=== PATIENT | female | born 1970 | race Caucasian/White ===

== ENCOUNTER → 2019-02-19 | Outpatient (CLI) | payer OTHER | LOC: LAB 19:20 → LAB SHORT 19:20 | PROVIDERS: Nurse Practitioner Family | DX: Z01.419 Encounter for gynecological examination (general) (routine) without abnormal findings (principal) | CPT/HCPCS: G0145 ==

== ENCOUNTER → 2019-09-25 | Outpatient (CLI) | payer OTHER ==
[2019-09-26 11:15] LABS: Candida species (DNA Probe) Negative (NEGATIVE); G. vaginalis (DNA Probe) Negative (NEGATIVE); T. vaginalis (DNA Probe) Negative (NEGATIVE)
== END ==
LOC: LAB SHORT 18:33 → LAB 18:33
PROVIDERS: Obstetrics & Gynecology
DX: N76.0 Acute vaginitis (principal)
CPT/HCPCS: 87480; 87510; 87660

== ENCOUNTER → 2022-02-05 | Outpatient (CLI) | payer OTHER ==
[2022-02-10 16:11] LABS: HPV 16 Negative (Negative); HPV 18 Negative (Negative); HPV OTHER HR TYPES Negative (Negative)
== END | disposition home or self-care (01) ==
LOC: LAB SHORT 12:25 → LAB 12:25
PROVIDERS: Physician Assistant
DX: Z01.419 Encounter for gynecological examination (general) (routine) without abnormal findings (principal)
CPT/HCPCS: 87624; G0123

== ENCOUNTER → 2022-07-14 | Outpatient (CLI) | payer OTHER ==
[2022-07-15 00:36] LABS: Adenovirus F 40/41 Not Detected (NOT DETECT); Astrovirus Not Detected (NOT DETECT); Campylobacter Sp Not Detected (NOT DETECT); Cryptosporidium Not Detected (NOT DETECT); Cyclospora Cayetanensis Not Detected (NOT DETECT); E. Coli O157 Not Detected (NOT DETECT); Entamoeba Histolytica Not Detected (NOT DETECT); Enteroaggregative E. coli-EAEC Not Detected (NOT DETECT); Enteropathogenic E. coli-EPEC Not Detected (NOT DETECT); Enterotoxigenic E. coli-ETEC Not Detected (NOT DETECT); Giardia Lamblia Not Detected (NOT DETECT); Norovirus GI/GII Detected (NOT DETECT); Plesiomonas Shigelloides Not Detected (NOT DETECT); Rotavirus A Detected (NOT DETECT); Salmonella Sp Not Detected (NOT DETECT); Shiga Toxin-prod E. coli-STEC Not Detected (NOT DETECT); Shigella/Enteroin E. coli-EIEC Not Detected (NOT DETECT); Vibrio Cholerae Not Detected (NOT DETECT); Vibrio Sp Not Detected (NOT DETECT); Yersinia Enterocolitica Not Detected (NOT DETECT)
[2022-07-15 00:37] LABS: Sapovirus Not Detected (NOT DETECT)
== END | disposition home or self-care (01) ==
LOC: LAB SHORT 16:52
PROVIDERS: Physician Assistant Surgical
DX: K52.9 Noninfective gastroenteritis and colitis, unspecified (principal)
CPT/HCPCS: 87507

== ENCOUNTER 2023-07-19 07:23 | Day surgery (SDC) | payer OTHER ==
[~2023-07-19] VITALS: Ht 167.6 cm; Wt 103.2 kg
[~2023-07-19 07:23] MED LIST: PROG100 PO; VENL37.5ER PO; VIVELLE-DOT1 EA30
[2023-07-19] MEDS ORDERED: IBUP200 PO (08:48)
[2023-07-19] MEDS ORDERED: MULVITA (08:48)
--- NOTE | 2023-07-19 08:53 | NUR ---
07/19/[address] ASSESSED PT LEFT HAND 3RD FINGER OPEN CYST- OK'S FOR PROCEDURE TO PROCEED.
--- NOTE | 2023-07-19 09:27 | NUR ---
07/19/23 0927 Lizzy Fabian PT HAS PILLOW UNDER KNEES, RIGHT ARM IS SECURED ON ARMBOARD WITH SAFETY STRAP, AND LEFT ARM ON A DOUBLE ARMBOARD
--- NOTE | 2023-07-19 10:43 | NUR ---
07/19/23 1043 Manuelito Mckeon PT PROVIDED ONDANSETRON 4MG IV FOR COMPLAINT OF NAUSEA, NO EMESIS
[2023-07-19 10:44] VITALS: BP 121/80
== END 2023-07-19 11:00 | disposition home or self-care (01) ==
LOC: ORSCSDS 07:23
PROVIDERS: Orthopaedic Surgery
PROC: 0LB80ZZ Excision of Left Hand Tendon, Open Approach (ICD-10-PCS; principal; 2023-07-19 08:30)
DX: M67.442 Ganglion, left hand (principal); Z79.899 Other long term (current) drug therapy
CPT/HCPCS: J0690; J2250; J2405; J2704; J2795; J3010

== ENCOUNTER → 2024-01-12 | Outpatient (CLI) | payer OTHER ==
[~2024-01-12] MED LIST changes: +IBUP200 PO; +MULVITA
== END ==
LOC: LAB SHORT 16:11 → LAB 16:11
DX: N39.0 Urinary tract infection, site not specified (principal)
CPT/HCPCS: 87086